=== PATIENT | female | born 1945 | race Caucasian/White ===

== ENCOUNTER 2023-06-21 10:40 | Outpatient (CLI) | payer MEDICARE, BC | END 2023-06-21 10:41 | disposition home or self-care (01) | LOC: SCSMRI 10:40 | PROVIDERS: ATTEND Anesthesiology Pain Medicine | DX: M25.552 Pain in left hip (principal); M17.11 Unilateral primary osteoarthritis, right knee; M47.812 Spondylosis without myelopathy or radiculopathy, cervical region; M48.061 Spinal stenosis, lumbar region without neurogenic claudication; S83.231A Complex tear of medial meniscus, current injury, right knee, initial encounter; M48.8X6 Other specified spondylopathies, lumbar region; M47.815 Spondylosis without myelopathy or radiculopathy, thoracolumbar region; S83.512A Sprain of anterior cruciate ligament of left knee, initial encounter; M22.2X1 Patellofemoral disorders, right knee; M25.852 Other specified joint disorders, left hip; M16.11 Unilateral primary osteoarthritis, right hip | CPT/HCPCS: 72052; 72148 ==